=== PATIENT | male | born 1940 | race Caucasian/White ===

== ENCOUNTER 2020-06-25 06:10 | Emergency (ER) | payer MEDICARE ==
[~2020-06-25 06:10] MED LIST: AMLODIPINE5 MG PO; ASPIRIN LOW DOS81 M1 PO; ASPIRIN81 MG PO; CLOPIDOGREL75 MG PO; FISH OIL1000 MG PO; MULTIVITAMI1 PO; OCUVITE PO; PRAVASTATIN20 MG PO; PROBIOTIC1 TAB PO; PROTONIX40 M2 PO
[2020-06-25 06:39] LABS: HEMATOCRIT 47.5 % (39.0-50.0); HEMOGLOBIN 15.3 g/dl (14.0-18.0); IMMATURE GRANULOCYTES 0.3 % (0.0-5.0); MEAN CELL VOLUME 100.2 fL CALC (80.0-100.0); MEAN CORPUSCULAR HGB 32.3 pG CALC (26.0-32.0); MEAN CORPUSCULAR HGB CONC 32.2 g/dL CAL (32.0-36.0); NEUT# 5.28 thou/uL (1.82-7.42); RED BLOOD COUNT 4.74 mill/uL (4.70-6.10); RED CELL DISTRI WIDTH 12.5 % (11.5-15.5)
[2020-06-25 06:57] LABS: ACT PARTIAL THROMBO TIME 19.3 SECONDS (20.0-32.5); INTERNATIONAL NORMALIZED RATIO 1.1 RATIO (0.7-1.3)
[2020-06-25 06:58] LABS: ALBUMIN 4.8 g/dL (3.2-5.0); ALKALINE PHOSPHATASE 70 u/l (38-126); ANION GAP 15 (6-22 (CALC)); BUN 15 mg/dL (8-23); BUN/CREATININE RATIO 20 (12-20 (CALC)); CARBON DIOXIDE 24 mmol/l (22-30); CHLORIDE 103 mmol/l (95-108); CREATININE 0.8 mg/dL (0.7-1.3); GFR > 60 ML/MIN (>=60 (CALC)); GFR FOR AFR.AMER. > 60 ML/MIN (>=60 (CALC)); POTASSIUM 4.8 mmol/l (3.5-5.1); SGOT/AST 49 u/l (19-48); SODIUM 138 mmol/l (137-146); TOTAL PROTEIN 8.4 g/dL (6.3-8.2)
[2020-06-25 06:59] LABS: BILIRUBIN, TOTAL 1.6 mg/dL (0.0-1.4)
[2020-06-25 07:09] LABS: MYOGLOBIN 70 ng/mL (0 - 121)
[2020-06-25 07:23] VITALS: BP 89/52
== END 2020-06-25 07:40 | disposition short-term general hospital (02) ==
LOC: ED 06:10
PROVIDERS: Emergency Medicine
PROC: 5A12012 Performance of Cardiac Output, Single, Manual (ICD-10-PCS; principal; 2020-06-25)
PROC: 5A2204Z Restoration of Cardiac Rhythm, Single (ICD-10-PCS; 2020-06-25)
DX: I21.09 ST elevation (STEMI) myocardial infarction involving other coronary artery of anterior wall (principal); I46.2 Cardiac arrest due to underlying cardiac condition; I49.01 Ventricular fibrillation; I10 Essential (primary) hypertension; I25.10 Atherosclerotic heart disease of native coronary artery without angina pectoris; Z95.5 Presence of coronary angioplasty implant and graft; Z20.822 Contact with and (suspected) exposure to COVID-19
CPT/HCPCS: J1644

== ENCOUNTER 2020-07-29 21:29 | Emergency (ER) | payer MEDICARE ==
[~2020-07-29] VITALS: Ht 172.7 cm; Wt 84.4 kg
[2020-07-29 22:06] LABS: HEMATOCRIT 43.5 % (39.0-50.0); IMMATURE GRANULOCYTES 0.2 % (0.0-5.0); MEAN CELL VOLUME 100.5 fL CALC (80.0-100.0); MEAN CORPUSCULAR HGB 32.3 pG CALC (26.0-32.0); MEAN CORPUSCULAR HGB CONC 32.2 g/dL CAL (32.0-36.0); NEUT# 6.12 thou/uL (1.82-7.42); RED BLOOD COUNT 4.33 mill/uL (4.70-6.10); RED CELL DISTRI WIDTH 12.9 % (11.5-15.5)
[2020-07-29 22:08] LABS: URINE BILIRUBIN - DIPSTICK NEGATIVE (NEGATIVE); URINE BLOOD DIPSTICK LARGE (NEGATIVE); URINE COLOR YELLOW; URINE GLUCOSE - DIPSTICK NEGATIVE (NEGATIVE); URINE KETONE TRACE mg/dL (NEGATIVE); URINE LEUK ESTERASE NEGATIVE (NEGATIVE); URINE PH 5.5 (4.5-8.0); URINE PROTEIN - DIPSTICK 30 mg/dL (NEG-TRACE); URINE SPECIFIC GRAVITY 1.025; URINE UROBILINOGEN - DIPSTICK 0.2 E.U./dL (0.2)
[2020-07-29 22:10] LABS: URINE NITRITE - DIPSTICK NEGATIVE (Negative)
[2020-07-29] MEDS ORDERED: LIPITOR40 M1 PO (22:12)
[2020-07-29] MEDS ORDERED: COZAAR25 MG PO (22:12)
[2020-07-29] MEDS ORDERED: BRILINTA90 MG PO (22:13)
[2020-07-29] MEDS ORDERED: ASPIRIN 81 LOW81 MG (22:14)
[2020-07-29] MEDS ORDERED: XELPROS0.005 % (22:15)
[2020-07-29] MEDS ORDERED: OCUVIT1 PO (22:16)
[2020-07-29] MEDS ORDERED: PROBIOTI2 (22:16)
[2020-07-29 22:25] LABS: ACT PARTIAL THROMBO TIME 25.9 SECONDS (20.0-32.5); INTERNATIONAL NORMALIZED RATIO 1.1 RATIO (0.7-1.3); PROTHROMBIN TIME 11.5 SECONDS (9.0-12.5)
[2020-07-29 22:29] LABS: ALBUMIN 4.2 g/dL (3.2-5.0); ALKALINE PHOSPHATASE 89 u/l (38-126); ANION GAP 10 (6-22 (CALC)); BUN 18 mg/dL (8-23); BUN/CREATININE RATIO 20 (12-20 (CALC)); CARBON DIOXIDE 28 mmol/l (22-30); CHLORIDE 103 mmol/l (95-108); CREATININE 0.9 mg/dL (0.7-1.3); GFR > 60 ML/MIN (>=60 (CALC)); GFR FOR AFR.AMER. > 60 ML/MIN (>=60 (CALC)); LIPASE 55 u/l (23-300); SGOT/AST 26 u/l (19-48); SODIUM 137 mmol/l (137-146); TOTAL PROTEIN 7.3 g/dL (6.3-8.2); URINE RBC 25-50 RBC/hpf (0-5)
[2020-07-29 22:34] LABS: BILIRUBIN, TOTAL 0.8 mg/dL (0.0-1.4)
[2020-07-30] MEDS ORDERED: CIPROFLOXACN500 MG PO (00:14)
[2020-07-30] MEDS ORDERED: PROCTOFOAM HC10 GM RE (00:14)
[2020-07-30] MEDS ORDERED: HYDROCO/APAP1 TA9 PO (00:14)
[2020-07-30] MEDS ORDERED: TAMSULOSIN0.4 MG PO (00:14)
[2020-07-30 00:32] VITALS: BP 170/89
== END 2020-07-30 00:32 | disposition home or self-care (01) ==
LOC: ED 21:29
DX: K62.5 Hemorrhage of anus and rectum (principal); K64.9 Unspecified hemorrhoids; R31.29 Other microscopic hematuria; N20.1 Calculus of ureter; I10 Essential (primary) hypertension; I25.2 Old myocardial infarction; Z95.5 Presence of coronary angioplasty implant and graft; Z86.74 Personal history of sudden cardiac arrest; Z79.02 Long term (current) use of antithrombotics/antiplatelets
CPT/HCPCS: Q9967

== ENCOUNTER 2022-04-26 23:59 | Emergency (ER) | payer MEDICARE ==
[~2022-04-26] VITALS: Ht 172.7 cm; Wt 83.0 kg
[~2022-04-26 23:59] MED LIST changes: +ASPIRIN 81 LOW81 MG; +BRILINTA90 MG PO; +CIPROFLOXACN500 MG PO; +COZAAR25 MG PO; +HYDROCO/APAP1 TA9 PO; +LIPITOR40 M1 PO; +OCUVIT1 PO; +PROBIOTI2; +PROCTOFOAM HC10 GM RE; +TAMSULOSIN0.4 MG PO; +XELPROS0.005 %
[2022-04-27 00:08] VITALS: BP 166/84
[2022-04-27 00:17] VITALS: BP 165/83
[2022-04-27 00:31] VITALS: BP 153/74
[2022-04-27] MEDS ORDERED: LOSARTAN POTASS50 MG PO (00:33)
[2022-04-27] MEDS ORDERED: METOPROL TAR25 MG PO (00:34)
[2022-04-27 00:55] LABS: BASO% 0.4 % (0-3); HEMATOCRIT 43.2 % (39.0-50.0); HEMOGLOBIN 13.8 g/dl (14.0-18.0); IMMATURE GRANULOCYTES 0.1 % (0.0-5.0); LYMPH% 17.3 % (15-41); MEAN CELL VOLUME 100.2 fL CALC (80.0-100.0); MEAN CORPUSCULAR HGB CONC 31.9 g/dL CAL (32.0-36.0); MONO% 7.2 % (2-13); NEUT# 6.18 thou/uL (1.82-7.42); RED BLOOD COUNT 4.31 mill/uL (4.70-6.10); RED CELL DISTRI WIDTH 12.1 % (11.5-15.5)
[2022-04-27 01:00] VITALS: BP 157/82
[2022-04-27 01:09] LABS: ALBUMIN 4.2 g/dL (3.2-5.0); ALKALINE PHOSPHATASE 98 u/l (38-126); ANION GAP 9 (6-22 (CALC)); BILIRUBIN, TOTAL 0.3 mg/dL (0.2-1.3); BUN 23 mg/dL (8-23); BUN/CREATININE RATIO 28 (12-20 (CALC)); CARBON DIOXIDE 31 mmol/l (22-30); CHLORIDE 103 mmol/l (95-108); CREATININE 0.8 mg/dL (0.7-1.3); GFR FOR AFR.AMER. > 60 ML/MIN (>=60 (CALC)); GFR OTHER RACES > 60 ML/MIN (>=60 (CALC)); MAGNESIUM 1.9 mg/dL (1.6-2.3); POTASSIUM 4.5 mmol/l (3.5-5.1); SGOT/AST 29 u/l (19-48); SODIUM 139 mmol/l (137-146); TOTAL PROTEIN 6.8 g/dL (6.3-8.2)
[2022-04-27 01:21] LABS: ACT PARTIAL THROMBO TIME 27.8 SECONDS (20.0-32.5); INTERNATIONAL NORMALIZED RATIO 1.2 RATIO (0.7-1.3); PROTHROMBIN TIME 11.4 SECONDS (9.0-12.5)
== END 2022-04-27 01:01 | disposition left against medical advice (07) ==
LOC: ED 23:59
PROVIDERS: Family Medicine
DX: R00.2 Palpitations (principal); I10 Essential (primary) hypertension; Z95.5 Presence of coronary angioplasty implant and graft; Z53.29 Procedure and treatment not carried out because of patient's decision for other reasons